=== PATIENT | female | born 1935 | race Two or more races ===

== ENCOUNTER 2017-04-11 03:07 | Inpatient (IN) | payer MEDICARE, BC ==
[~2017-04-11] VITALS: Ht 170.2 cm; Wt 90.7 kg
--- NOTE | 2017-04-11 03:10 | NUR ---
TO BED 7 AN 82 YO FEMALE BBRA FROM SNF FOR "SOB GETTING WORSE"; ON BREATHING [place] ADVERTISING CLERK. UPON ARRIVAL, PATIENT IS ON NONREBREATHER, 15LPM, SATTING AT 99% AT THIS TIME. PATIENT IS AWAKE, RESPONSIVE. PLACED ON CARDIAC AND VS MONITORING. KEPT HOB ELEVATED. MAINTAINED PATENT AIRWAY. COMFORT MEASURES RENDERED.
[2017-04-11 03:49] LABS: BASOPHILS # (AUTO) 0.1 /CMM (0.0-0.2); BASOPHILS % (AUTO) 0.8 % (0.0-2.0); EOSINOPHILS # (AUTO) 0.1 /CMM (0.0-0.7); EOSINOPHILS % (AUTO) 1.9 % (0.0-6.0); HEMATOCRIT 36 % (33-45); HEMOGLOBIN 11.7 g/dL (11.5-14.8); LYMPHOCYTES # (AUTO) 1.3 /CMM (0.8-4.8); LYMPHOCYTES % (AUTO) 18.4 % (20.0-44.0); MEAN CORPUSCULAR HEMOGLOBIN 28 PG (26.0-33.0); MEAN CORPUSCULAR HGB CONC 33 g/dl (31.0-36.0); MEAN CORPUSCULAR VOLUME 87 fL (82-100); MONOCYTES # (AUTO) 0.7 /CMM (0.1-1.30); MONOCYTES % (AUTO) 10.1 % (2.0-12.0); NEUTROPHILS # (AUTO) 4.9 /CMM (1.8-8.9); NEUTROPHILS % (AUTO) 68.8 % (43.0-81.0); PLATELET COUNT (AUTO) 196 /CMM (150-450); RDW COEFFICIENT OF VARIATION 16.8 (11.5-15.0); RED BLOOD CELL COUNT(AUTO) 4.14 MIL/uL (4.0-5.2); WHITE BLOOD COUNT (AUTO) 7.2 K/uL (4.3-11.0)
[2017-04-11] MEDS ORDERED: BISA10SU61 RC (03:52)
[2017-04-11] MEDS ORDERED: CRAN425C5 PO (03:52)
[2017-04-11] MEDS ORDERED: DOCU-141 PO (03:52)
[2017-04-11] MEDS ORDERED: BENA20TA2 PO (03:52)
[2017-04-11] MEDS ORDERED: BUSP10TA3 PO (03:52)
[2017-04-11 04:01] LABS: CALCIUM, SERUM 9.6 mg/dL (8.5-10.1); CARBON DIOXIDE 27 mmol/L (21-32); CHLORIDE 106 mmol/L (98-107); CREATININE 1.3 mg/dL (0.6-1.3); GLUCOSE 96 mg/dL (74-106); POTASSIUM 3.9 mmol/L (3.5-5.1); SODIUM SERUM 140 mmol/L (136-145); UREA NITROGEN, BLOOD 36 mg/dL (7-18)
[2017-04-11] MEDS ORDERED: PRED5TAB48 PO (04:06)
[2017-04-11] MEDS ORDERED: LIDO30AD10 TP (04:06)
[2017-04-11] MEDS ORDERED: FURO40TA5 PO (04:06)
[2017-04-11] MEDS ORDERED: CRAN3875 PO (04:06)
[2017-04-11] MEDS ORDERED: MAGN400O6 PO (04:06)
[2017-04-11] MEDS ORDERED: MENT10LO8 MM (04:06)
[2017-04-11] MEDS ORDERED: OXYC5CAP18 PO (04:06)
[2017-04-11] MEDS ORDERED: LOPE2CAP PO (04:06)
[2017-04-11] MEDS ORDERED: CYCL5TAB PO (04:06)
[2017-04-11] MEDS ORDERED: HYDR-552 PO (04:06)
[2017-04-11] MEDS ORDERED: IPRA3AMP IH (04:06)
[2017-04-11] MEDS ORDERED: HYDR-3974 PO (04:06)
[2017-04-11] MEDS ORDERED: POTA20TA10 PO (04:06)
[2017-04-11] MEDS ORDERED: ACET-868 PO (04:06)
[2017-04-11] MEDS ORDERED: PREG75CA PO (04:06)
[2017-04-11] MEDS ORDERED: PERP1TAB5 PO (04:06)
[2017-04-11] MEDS ORDERED: NA P133E RC (04:06)
[2017-04-11] MEDS ORDERED: AMIN30LI2 PO (04:06)
[2017-04-11 04:07] LABS: ABG BASE EXCESS 0.4 mmol/L; ABG OXYGEN SATURATION 94.7 % (92.0-98.5); ABG PCO2 43.7 mmHg (35.0-45.0); ABG PH 7.386 (7.350-7.450); ABG PO2 81.1 mmHg (75.0-100.0); AaDO2 588.2 mmHg; COHb 0.7 % (0.5-1.5); MetHb 0.5 % (0.0-1.5); O2Hb 93.6 % (94.0-97.0); SITE, ABG Right Radial; VENT MODE, BG NRB MASK
[2017-04-11 04:08] LABS: TROPONIN I < 0.017 ng/mL (0.00-0.056)
[2017-04-11 04:14] LABS: ALKALINE PHOSPHATASE 154 U/L (46-116); BILIRUBIN,DIRECT 0.1 mg/dL (0.0-0.2); BILIRUBIN,TOTAL 0.3 mg/dL (0.2-1.0)
[2017-04-11 04:15] LABS: ALANINE AMINOTRANSFERASE 26 U/L (12-78); ALBUMIN 2.4 g/dL (3.4-5.0); ASPARTATE AMINOTRANSFERASE 13 U/L (15-37); B-TYPE NATRIURETIC PEPTIDE 89 PG/ML (0-125); TOTAL PROTEIN, SERUM 6.6 g/dL (6.4-8.2)
[2017-04-11] MEDS ORDERED: PIPERACILLIN /TAZOBACTAM 3.375 G VIAL IV ONE (04:15)
[2017-04-11] MEDS ORDERED: LEVOFLOXACIN 750 MG /D5W 150ML 150 ML IV ONE ×2 (04:15→04:30)
[2017-04-11] MEDS ORDERED: methylPREDNISolone SOD SUCC 125 MG/2ML VIAL ONE (04:17)
[2017-04-11] MEDS ORDERED: ALBUTEROL FS 2.5 MG/3 ML VIAL.NEB CONTNEB ONE (04:30)
[2017-04-11] MEDS ORDERED: methylPREDNISolone SOD SUCC 125 MG/2ML VIAL IV ONE (04:30)
[2017-04-11] MEDS ORDERED: PIPERACILLIN /TAZOBACTAM 3.375 G in IV D5W 50 ML IV ONE (04:30)
[2017-04-11] MEDS ORDERED: IPRATROPIUM NEB FS 0.5 MG/2.5 ML AMPUL.NEB NEB ONE (04:30)
[2017-04-11] MEDS ORDERED: IV NS 0.9% 1,000 ML BAG IV ONE (04:30)
--- NOTE | 2017-04-11 04:50 | NUR ---
ONGOING BREATHING TREATMENT.
[2017-04-11] MEDS ORDERED: ALBUTEROL FS 2.5 MG/3 ML VIAL.NEB ONE (04:52)
[2017-04-11] MEDS ORDERED: IPRATROPIUM NEB FS 0.5 MG/2.5 ML AMPUL.NEB ONE (04:52)
[2017-04-11 06:10] VITALS: BP 105/54
--- NOTE | 2017-04-11 06:10 | NUR ---
ms/rn notes received patient in bed, hob elevate, for sob/hypoxia requiring 6l oxygen on deep breathing mask, patient able to awaken but weak, , hx of depression, spinallstenosis, met encephalopathy, uti, dysphagia, difficult ambulating, , full code but no intubation with hospitalization, came from [facility]. , right hand on gauge 20, , able to awaken, skin warm to touch, incontinent.
--- NOTE | 2017-04-11 06:17 | NUR ---
TRANSFERRED PATIENT TO TELE BED 326-1 VIA ALS PROTOCOL, NO INCIDENT NOTED. ENDORSED TO BHAVANI BENOIT AT BEDSIDE.
[2017-04-11] MEDS ORDERED: ACETAMINOPHEN 325 MG TABLET PO PRN (07:30)
[2017-04-11] MEDS ORDERED: ONDANSETRON HCL/PF 4 MG/2 ML VIAL IVP PRN (07:30)
[2017-04-11 08:00] VITALS: BP 103/55
--- NOTE | 2017-04-11 08:07 | NUR ---
TERRITORY SALES PROFESSIONAL RAPID RESPONSE NOTE RECEIVED REPORT FROM NUCLEAR WEAPONS MECHANICAL SPECIALIST NURSE, UPON NURSING ASSESSMENT PATIENT WAS UNRESPONSIVE. VITAL SIGNS SIGNS TAKEN DURING RAPID RESPONSE, BP:99/49 t:98.0 O2 SATURATION:100% ON 5L/MIN OF OXYGEN VIA NASAL CANNULA. PATIENT WAS VERY LETHARGIC AND NOT RESPONDING TO STIMULI. MD NOTIFIED ABOUT PATIENT'S CONDITION, GLUCOSE CHECKED-154. ORDERS RECEIVED BY MD FOR 1GRAM MAGNESIUM NOTED AND CARRIED OUT. STAT ABG ORDERED, RESULTS CAME BACK WNL WITH HYPOXIA NOTED. RAPID RESPONSE WAS RESOLVED. PATIENT IS ALERT AND ORIENTED X2. STABLE AT THIS TIME. ABLE TO FOLLOW COMMANDS AND TALKING BACK TO NURSES.
[2017-04-11] MEDS ORDERED: Magnesium 1GM/D5W 100ML PREMIX PIGGYBACK IV ONE (08:30)
[2017-04-11 08:38] LABS: ABG OXYGEN SATURATION 85.9 % (92.0-98.5); ABG PH 7.372 (7.350-7.450); ABG PO2 54.7 mmHg (75.0-100.0); AaDO2 120.8 mmHg; COHb 0.1 % (0.5-1.5); MetHb 0.4 % (0.0-1.5); O2Hb 85.5 % (94.0-97.0); SITE, ABG Right Radial; VENT MODE, BG Nasal Cannula
[2017-04-11] MEDS: IPRATROPIUM NEB FS 0.5 MG/2.5 ML AMPUL.NEB NEB PRN (08:46)
[2017-04-11] MEDS: ALBUTEROL FS 2.5 MG/0.5 ML VIAL.NEB NEB PRN (08:46)
[2017-04-11] MEDS ORDERED: Medication Not On Formulary EA (Cran/Vitc/Mannose/Inulin/Brom (Uti-Stat Liquid) 3,875 MG PO SCH (09:00)
[2017-04-11] MEDS: BENAZEPRIL HCL 10 MG TABLET PO SCH (09:00)
[2017-04-11] MEDS ORDERED: busPIRone HCL 10 MG TABLET PO SCH (09:00)
--- NOTE | 2017-04-11 09:00 | NUR ---
RN NOTE MAGNESIUM 1 GRAM STARTED AT THIS TIME. WILL CONTINUE TO MONITOR
[2017-04-11] MEDS: PREGABALIN 25 MG CAPSULE PO SCH ×3 (09:21→17:36)
[2017-04-11] MEDS: IV NS 0.9% 1,000 ML IV PRN (09:21)
[2017-04-11] MEDS: CYCLOBENZAPRINE 10 MG TABLET PO SCH ×3 (09:22→17:36)
[2017-04-11] MEDS: DOCUSATE SODIUM 100 MG CAPSULE PO SCH ×2 (09:22→17:36)
[2017-04-11] MEDS: POTASSIUM CHLORIDE 20 MEQ TAB.PRT.SR PO SCH (09:22)
[2017-04-11] MEDS: FUROSEMIDE 40 MG TABLET PO SCH (09:23)
[2017-04-11] MEDS: PROSOURCE / PROSTAT (PYXIS) 30 ML UDC PO SCH (09:27)
[2017-04-11] MEDS ORDERED: AMITRIPTYLINE HCL 50 MG TABLET PO SCH (11:00)
[2017-04-11] MEDS: PERPHENAZINE 2 MG TABLET PO SCH (11:00)
[2017-04-11] MEDS ORDERED: methylPREDNISolone SOD SUCC 125 MG/2ML VIAL IV SCH (13:00)
[2017-04-11 14:16] VITALS: BP 99/49
[2017-04-11 16:00] VITALS: BP 126/54
--- NOTE | 2017-04-11 16:30 | NUR ---
RN NOTE PER MD TO DO BLADDER SCAN ON PATIENT. BLADDER SCAN SHOWED >530 ML OF URINE RETAINED. ORDER FROM MD TO INSERT NULL, COLLECT URINE FOR UA AND URINE CULTURE. NULL CATHETER INSERTED, PATIENT TOLERATED WELL. URINE SAMPLE COLLECTED AND SENT TO LAB. WILL CONTINUE TO MONITOR THROUGHOUT SHIFT
[2017-04-11] MEDS: busPIRone 5 MG TABLET PO SCH (17:36)
[2017-04-11] MEDS ORDERED: FEE PK DOSING 1 MIN EA MC ONE (18:31)
--- NOTE | 2017-04-11 18:36 | NUR ---
DOUGHNUT FRYER CLOSING NOTE PATIENT IS ALERT AND ORIENTED x2. NO PAIN AT THIS TIME. NO SOB OR DISTRESS NOTED. CALL LIGHT WITHIN REACH AT ALL TIMES. SAFETY MEASURES IMPLEMENTED. ALL DUE MEDICATIONS GIVEN ORDERED. ALL NURSING CARE NEEDS ATTENDED TO NEEDED. IV INTACT AND PATENT NO REDNESS OR SWELLING NOTED, IV FLUIDS RUNNING AT THIS TIME TOLERATING WELL. NULL CATHETER IN PLACE. ON 5L/MIN OF OXYGEN VIA NASAL CANNULA WITH HUMIDIFIER. WILL ENDORSE TO MOISTURE METER OPERATOR NURSE FOR KEO
[2017-04-11] MEDS: ENOXAPARIN SODIUM 40 MG/0.4 ML DISP.SYRIN SQ SCH (18:54)
--- NOTE | 2017-04-11 19:45 | NUR ---
PRESS CLEANER OPENING NOTES RECEIVED PT LAYING IN BED WITH HOB ELEVATED. A/O X1, RESPIRATIONS ARE EVEN AND UNLABORED, NOT IN ANY ACUTE DISTRESS NOTED. NO C/O SOB, CHEST PAIN, N/V AT THIS TIME. DENIES ANY PAIN. IV TO RIGHT HAND INTACT, NO INFILTRATION NOTED. SAFETY MEASURES IN PLACE. BED IS IN ITS LOCKED AND LOW POSITION. WILL CONTINUE TO MONITOR THROUGHOUT SHIFT.
[2017-04-11 20:37] VITALS: BP 118/63
--- NOTE | 2017-04-11 20:45 | NUR ---
LINK TRAINER MAINTENANCE MAN NOTES PT WAS ASSIGNED TO ANOTHER RN. GAVE REPORT TO KAYCEE STARR FOR CONTINUITY OF CARE.
[2017-04-11] MEDS: VANCOMYCIN 1 GM in IV NS 0.9% 250 ML IV SCH (21:00)
[2017-04-11] MEDS: methylPREDNISolone SOD SUCC 125 MG/2ML VIAL IV SCH (21:00)
[2017-04-11 21:09] LABS: APPEARANCE,URINE SL CLOUDY (CLEAR); BILIRUBIN,URINE NEGATIVE (NEGATIVE); BLOOD, URINE NEGATIVE Ery/uL (NEGATIVE); COLOR,URINE YELLOW (YELLOW); KETONES,URINE NEGATIVE (NEGATIVE); LEUKOCYTE ESTERASE ,URINE 2+ (NEGATIVE); NITRITE, URINE POSITIVE (NEGATIVE); PROTEIN,URINE TRACE mg/dl (NEGATIVE); UGLUCOSE NEGATIVE (NEGATIVE); UROBILINOGEN,URINE 0.2 EU/dL (0.2)
[2017-04-11 21:10] LABS: PH,URINE >8.5 (5.0-8.0)
[2017-04-11 21:22] LABS: RBC,URINE 0-2 /HPF (0-2)
[2017-04-11 21:23] LABS: BACTERIA,URINE Few /HPF (None Seen); SQUAMOUS EPITHELIAL CELL,UR Few /HPF (None Seen); URINE AMORPHOUS PHOSPHATES Moderate /HPF (None Seen)
--- NOTE | 2017-04-11 23:10 | NUR ---
Patient resides at [facility] [phone] .She requires assistance with adl's and chair bound. Family are involved and supportive with plan of care. Current plan is to dc back to SNF Addendum: 04/11/17 at 2311 by ROSALINA CAMARENA RN Amended: Links added.
[2017-04-12] MEDS: IV NS 0.9% 1,000 ML IV PRN (04:42)
[2017-04-12] MEDS: methylPREDNISolone SOD SUCC 125 MG/2ML VIAL IV SCH ×3 (05:16→18:05)
[2017-04-12] MEDS: IPRATROPIUM NEB FS 0.5 MG/2.5 ML AMPUL.NEB NEB PRN (06:06)
[2017-04-12] MEDS: ALBUTEROL FS 2.5 MG/0.5 ML VIAL.NEB NEB PRN (06:06)
--- NOTE | 2017-04-12 07:24 | NUR ---
ms/rn notes Patient alert et orientedx 2-3 , No significant changes the entire shift. Vital signs, afebrile, Denies pain at present. Administered all meds as ordered. Sinus Rhythm on technical documentation specialist, hr-70. No acute distress noted. All meeds attended. will endorse accordingly.
--- NOTE | 2017-04-12 07:30 | NUR ---
ROLLER REPAIRER OPENING NOTE PATIENT IS ALERT AND ORIENTED x2. NO PAIN AT THIS TIME. NO SOB OR DISTRESS NOTED. CALL LIGHT WITHIN REACH. SAFETY MEASURES IMPLEMENTED. ABLE TO COMMUNICATE NEEDS. IV INTACT AND PATENT NO REDNESS OR SWELLING NOTED, IV FLUIDS RUNNING AT THIS TIME TOLERATING WELL AT 75 ML/HR. ON 5L/MIN OF OXYGEN VIA NASAL CANNULA WITH HUMIDIFIER. NULL CATHETER IN PLACE. WILL CONTINUE TO MONITOR THROUGHOUT SHIFT
[2017-04-12 08:00] VITALS: BP 142/72
[2017-04-12 08:14] LABS: HEMATOCRIT 32 % (33-45); HEMOGLOBIN 10.7 g/dL (11.5-14.8); LYMPHOCYTES # (AUTO) 0.3 /CMM (0.8-4.8); LYMPHOCYTES % (AUTO) 3.5 % (20.0-44.0); MEAN CORPUSCULAR HEMOGLOBIN 29 PG (26.0-33.0); MEAN CORPUSCULAR HGB CONC 34 g/dl (31.0-36.0); MEAN CORPUSCULAR VOLUME 86 fL (82-100); MONOCYTES # (AUTO) 0.2 /CMM (0.1-1.30); MONOCYTES % (AUTO) 2.7 % (2.0-12.0); NEUTROPHILS # (AUTO) 8.5 /CMM (1.8-8.9); NEUTROPHILS % (AUTO) 93.8 % (43.0-81.0); PLATELET COUNT (AUTO) 172 /CMM (150-450); RDW COEFFICIENT OF VARIATION 16.2 (11.5-15.0); RED BLOOD CELL COUNT(AUTO) 3.68 MIL/uL (4.0-5.2)
[2017-04-12 08:26] LABS: CALCIUM, SERUM 8.5 mg/dL (8.5-10.1); CARBON DIOXIDE 26 mmol/L (21-32); CHLORIDE 108 mmol/L (98-107); CREATININE 0.9 mg/dL (0.6-1.3); GLUCOSE 125 mg/dL (74-106); PHOSPHORUS 2.4 mg/dL (2.5-4.9); POTASSIUM 4.3 mmol/L (3.5-5.1); SODIUM SERUM 142 mmol/L (136-145); UREA NITROGEN, BLOOD 25 mg/dL (7-18)
[2017-04-12 08:32] LABS: CHOLESTEROL 146 mg/dL (<200); HDL CHOLESTEROL 55 mg/dL (40-60); LDL 82 mg/dL (0-99); TRIGLYCERIDES 75 mg/dL (30-150)
[2017-04-12] MEDS: FUROSEMIDE 40 MG TABLET PO SCH (08:35)
[2017-04-12] MEDS: DOCUSATE SODIUM 100 MG CAPSULE PO SCH ×2 (08:35→16:35)
[2017-04-12] MEDS: POTASSIUM CHLORIDE 20 MEQ TAB.PRT.SR PO SCH (08:35)
[2017-04-12] MEDS: busPIRone 5 MG TABLET PO SCH ×2 (08:35→16:35)
[2017-04-12] MEDS: CYCLOBENZAPRINE 10 MG TABLET PO SCH ×3 (08:36→16:35)
[2017-04-12] MEDS: PREGABALIN 25 MG CAPSULE PO SCH ×3 (08:36→16:35)
[2017-04-12] MEDS: BENAZEPRIL HCL 10 MG TABLET PO SCH (08:37)
[2017-04-12] MEDS: PROSOURCE / PROSTAT (PYXIS) 30 ML UDC PO SCH (08:42)
[2017-04-12] MEDS: PERPHENAZINE 2 MG TABLET PO SCH (09:00)
--- NOTE | 2017-04-12 10:30 | NUR ---
MS RN NOTE PATIENT'S IV INFILTRATED ON RIGHT WRIST. REMOVED, SKIN INTACT, SWELLING DOWN. NEW IV STARTED ON RIGHT FOREARM 22G.
[2017-04-12] MEDS: AMITRIPTYLINE HCL 25 MG TABLET PO SCH (11:48)
[2017-04-12] MEDS: VANCOMYCIN 1 GM in IV NS 0.9% 250 ML IV SCH (13:44)
[2017-04-12 16:00] VITALS: BP 129/72
[2017-04-12] MEDS ORDERED: K PHOS NEUTRAL 250 MG TABLET PO ONE (18:30)
--- NOTE | 2017-04-12 18:44 | NUR ---
MS RN CLOSING NOTE PATIENT RESTING COMFORTABLY AT THIS TIME IN BED. NO PAIN AT THIS TIME. NO SOB OR DISTRESS NOTED. CALL LIGHT WITHIN REACH AT ALL TIMES. SAFETY MEASURES IMPLEMENTED. ABLE TO COMMUNICATE NEEDS. ALL DUE MEDICATIONS GIVEN ORDERED. ALL NURSING CARE NEEDS ATTENDED TO. IV INTACT AND PATENT NO REDNESS OR SWELLING NOTED, IV FLUIDS RUNNING AT THIS TIME TOLERATING WELL AT 75 ML/HR. NULL CATHETER IN PLACE-2500 OUTPUT. ON 5L/MIN OF OXYGEN VIA NASAL CANNULA TOLERATING WELL. WILL ENDORSE TO PROCESS ASSISTANT NURSE FOR KEO
--- NOTE | 2017-04-12 19:29 | NUR ---
MS RN OPENING NOTES RECEIVED PT SITTING UPRIGHT IN BED. AWAKE AND RESPONSIVE. RESPIRATIONS ARE EVEN AND UNLABORED, NOT IN ANY ACUTE DISTRESS NOTED. DENIES ANY CHEST PAIN, SOB, N/V. IV SITE INTACT, NO INFILTRATION NOTED. DRESSING KEPT CLEAN AND DRY. SAFETY MEASURES IN PLACE. BED IS IN ITS LOW AND LOCKED POSITION. INSTRUCTED PT TO USE CALL LIGHT WHEN ASSISTANCE IS NEEDED, CALL LIGHT IS LEFT WITHIN REACH. WILL CONTINUE TO MONITOR THROUGHOUT SHIFT.
[2017-04-12 20:00] VITALS: BP 122/70
[2017-04-12] MEDS: ENOXAPARIN SODIUM 40 MG/0.4 ML DISP.SYRIN SQ SCH (20:33)
[2017-04-13] MEDS: IV NS 0.9% 1,000 ML IV PRN ×2 (00:19→19:48)
--- NOTE | 2017-04-13 01:10 | NUR ---
MS RN NOTES PT HAD AN EPISODE OF TRYING TO GET OUT OF BED. STATED SHE "MADE ANTHONY." CHECKED PT AND IS COMPLETELY DRY, CURRENTLY HAS A NULL CATH, FREE OF KINKS AND IS DRAINING WELL. NOTED WITH CLEAR YELLOW URINE. EDUCATED PT RE: SAFETY MEASURES TO NOT GET OUT OF BED AND TO USE CALL LIGHT WHEN ASSISTANCE IS NEEDED. PT APPEARS TO BE CONFUSED AND NEEDS REINFORCEMENT NEEDED. BED IS IN ITS LOW AND LOCKED POSITION. CALL LIGHT IS LEFT WITHIN REACH.
[2017-04-13] MEDS: LEVOFLOXACIN 750 MG /D5W 150ML 750 MG in PREMIX 1 EA IV SCH (04:15)
--- NOTE | 2017-04-13 06:21 | NUR ---
MS RN CLOSING NOTES ALL DUE MEDS GIVEN, NEEDS MET AND RENDERED. AWAKE AND RESPONSIVE. RESPIRATIONS ARE EVEN AND UNLABORED, NOT IN ANY ACUTE DISTRESS NOTED. DENIES ANY PAIN, SOB, CHEST PAIN, N/V. IV TO RAC INTACT, NO INFILTRATION NOTED. DRESSING KEPT CLEAN AND DRY. BED IS IN ITS LOW AND LOCKED POSITION. REMINDED PT TO USE CALL LIGHT WHEN ASSISTANCE IS NEEDED, CALL LIGHT IS LEFT WITHIN REACH. WILL ENDORSE TO NEXT SHIFT CONTINUITY OF CARE.
[2017-04-13 08:00] VITALS: BP 142/76
[2017-04-13 08:09] LABS: BASOPHILS % (AUTO) 0.2 % (0.0-2.0); HEMATOCRIT 33 % (33-45); HEMOGLOBIN 11.2 g/dL (11.5-14.8); LYMPHOCYTES # (AUTO) 0.8 /CMM (0.8-4.8); LYMPHOCYTES % (AUTO) 7.5 % (20.0-44.0); MEAN CORPUSCULAR HEMOGLOBIN 29 PG (26.0-33.0); MEAN CORPUSCULAR HGB CONC 34 g/dl (31.0-36.0); MEAN CORPUSCULAR VOLUME 87 fL (82-100); MONOCYTES # (AUTO) 0.7 /CMM (0.1-1.30); MONOCYTES % (AUTO) 6.4 % (2.0-12.0); NEUTROPHILS # (AUTO) 9.1 /CMM (1.8-8.9); NEUTROPHILS % (AUTO) 85.9 % (43.0-81.0); PLATELET COUNT (AUTO) 181 /CMM (150-450); RDW COEFFICIENT OF VARIATION 16.5 (11.5-15.0); RED BLOOD CELL COUNT(AUTO) 3.85 MIL/uL (4.0-5.2); WHITE BLOOD COUNT (AUTO) 10.6 K/uL (4.3-11.0)
[2017-04-13 08:32] LABS: CALCIUM, SERUM 8.5 mg/dL (8.5-10.1); CARBON DIOXIDE 26 mmol/L (21-32); CHLORIDE 108 mmol/L (98-107); CREATININE 0.8 mg/dL (0.6-1.3); GLUCOSE 81 mg/dL (74-106); POTASSIUM 4.4 mmol/L (3.5-5.1); SODIUM SERUM 141 mmol/L (136-145); UREA NITROGEN, BLOOD 22 mg/dL (7-18)
[2017-04-13] MEDS: PROSOURCE / PROSTAT (PYXIS) 30 ML UDC PO SCH ×2 (09:00→09:26)
[2017-04-13] MEDS: VANCOMYCIN 1 GM in IV NS 0.9% 250 ML IV SCH (09:16)
[2017-04-13] MEDS: PREGABALIN 25 MG CAPSULE PO SCH ×3 (09:27→18:32)
[2017-04-13] MEDS: FUROSEMIDE 40 MG TABLET PO SCH (09:27)
[2017-04-13] MEDS: methylPREDNISolone SOD SUCC 125 MG/2ML VIAL IV SCH (09:27)
[2017-04-13] MEDS: CYCLOBENZAPRINE 10 MG TABLET PO SCH ×3 (09:27→18:31)
[2017-04-13] MEDS: busPIRone 5 MG TABLET PO SCH ×2 (09:28→18:31)
[2017-04-13] MEDS: POTASSIUM CHLORIDE 20 MEQ TAB.PRT.SR PO SCH (09:28)
[2017-04-13] MEDS: BENAZEPRIL HCL 10 MG TABLET PO SCH (09:28)
[2017-04-13] MEDS: AMITRIPTYLINE HCL 25 MG TABLET PO SCH (09:29)
[2017-04-13] MEDS: DOCUSATE SODIUM 100 MG CAPSULE PO SCH ×2 (09:29→18:32)
[2017-04-13] MEDS: PERPHENAZINE 2 MG TABLET PO SCH (09:41)
--- NOTE | 2017-04-13 12:10 | NUR ---
RECEIVED POSITIVE BLOOD CULTURE FROM SASKIA JACKSON RN INFORMED AND NEVILLE TEXTED WITH INFO-REPORTS IN COMPUTER. CONFIRMATION FROM NEVILLE THAT HE IS AWARE OF REPORTS.
[2017-04-13 16:00] VITALS: BP 124/72
--- NOTE | 2017-04-13 18:00 | NUR ---
NO CHANGE IN STATUS.
--- NOTE | 2017-04-13 19:15 | NUR ---
MS RN OPENING NOTES: RECEIVED PT IN BED AND IS FINISHING UP HER DINNER. PT A/OX2. PT ON 5LPM VIA NC AND IS TOLERATING WELL. NO S/S OF DISTRESS NOTED AT THIS TIME. PT HAS NULL CATH AND IS ATTACHED TO DRAINAGE BAG WITH YELLOW URINE DRAINING. BED ALARM ACTIVATED. CALL LIGHT WITHIN PT'S REACH. PT HAS IV ON R FOREARM #22G AND IS BEING INFUSED WITH IV NS AT 75ML/HR. BED KEPT IN LOW, LOCKED POSITION, AND SIDE RAILS X 2UP. WILL CONTINUE TO MONITOR PT.
[2017-04-13 20:00] VITALS: BP 136/71
[2017-04-13] MEDS: ENOXAPARIN SODIUM 40 MG/0.4 ML DISP.SYRIN SQ SCH (20:39)
[2017-04-14] MEDS: VANCOMYCIN 1 GM in IV NS 0.9% 250 ML IV SCH ×2 (01:15→21:39)
--- NOTE | 2017-04-14 07:44 | NUR ---
MS RN CLOSING NOTES: ALL NEEDS WERE ATTENDED AND ANTICIPATED FOR. PT AWAKE AND IS RESTING IN BED COMFORTABLY. PT A/OX2. PT ON 5LPM VIA NC AND IS TOLERATING WELL. NO S/S OF DISTRESS NOTED AT THIS TIME. PT HAS NULL CATH AND IS ATTACHED TO DRAINAGE BAG WITH YELLOW URINE DRAINING. OUTPUT WAS 1100ML. BED ALARM ACTIVATED. CALL LIGHT WITHIN PT'S REACH. PT HAS IV ON R FOREARM #22G AND IS BEING INFUSED WITH IV NS AT 75ML/HR. BED KEPT IN LOW, LOCKED POSITION, AND SIDE RAILS X 2UP. ENDORSED TO AM NURSE FOR KEO.
[2017-04-14 07:59] LABS: BASOPHILS % (AUTO) 0.1 % (0.0-2.0); EOSINOPHILS % (AUTO) 0.2 % (0.0-6.0); HEMATOCRIT 34 % (33-45); HEMOGLOBIN 11.3 g/dL (11.5-14.8); LYMPHOCYTES % (AUTO) 15.8 % (20.0-44.0); MEAN CORPUSCULAR HEMOGLOBIN 29 PG (26.0-33.0); MEAN CORPUSCULAR HGB CONC 33 g/dl (31.0-36.0); MEAN CORPUSCULAR VOLUME 88 fL (82-100); MONOCYTES # (AUTO) 0.5 /CMM (0.1-1.30); NEUTROPHILS # (AUTO) 4.6 /CMM (1.8-8.9); NEUTROPHILS % (AUTO) 74.9 % (43.0-81.0); PLATELET COUNT (AUTO) 156 /CMM (150-450); RDW COEFFICIENT OF VARIATION 16.3 (11.5-15.0); RED BLOOD CELL COUNT(AUTO) 3.89 MIL/uL (4.0-5.2); WHITE BLOOD COUNT (AUTO) 6.1 K/uL (4.3-11.0)
[2017-04-14 08:00] VITALS: BP 126/71
--- NOTE | 2017-04-14 08:00 | NUR ---
RN NOTES RECEIVED PATIENT IN THE BED A/O X3, CONGESTED CHEST, COUGHING, ON O2 -2L NC, PATIENT HAS NO C/O PAIN AT THIS TIME, ENCOURAGED TO EXPRESS FEELINGS AND CONCERNS. V/S TAKEN STABLE. SCHEDULED MEDICATION ADMINISTERED, NO ACUTE RESPIRATORY DISTRESS, INFUSING NS AT 75 ML/HR INTACT. ASSIST PATIENT TURN AND REPOSTION Q 2 HR, NEEDS ATTENDED AND ANTICIPATED F/C DRAIN LIGHT YELLOW OUTPUT, CALL LIGHT WITHIN TO REACH, CONTINUED MONITORING.
[2017-04-14 08:13] LABS: CALCIUM, SERUM 8.9 mg/dL (8.5-10.1); CARBON DIOXIDE 29 mmol/L (21-32); CHLORIDE 114 mmol/L (98-107); CREATININE 0.8 mg/dL (0.6-1.3); GLUCOSE 68 mg/dL (74-106); POTASSIUM 4.4 mmol/L (3.5-5.1); SODIUM SERUM 148 mmol/L (136-145); UREA NITROGEN, BLOOD 21 mg/dL (7-18)
[2017-04-14] MEDS: PREGABALIN 25 MG CAPSULE PO SCH ×3 (09:30→18:03)
[2017-04-14] MEDS: POTASSIUM CHLORIDE 20 MEQ TAB.PRT.SR PO SCH (09:30)
[2017-04-14] MEDS: FUROSEMIDE 40 MG TABLET PO SCH (09:30)
[2017-04-14] MEDS: CYCLOBENZAPRINE 10 MG TABLET PO SCH ×3 (09:30→18:03)
[2017-04-14] MEDS: DOCUSATE SODIUM 100 MG CAPSULE PO SCH ×2 (09:30→18:03)
[2017-04-14] MEDS: predniSONE 20 MG TABLET PO SCH (09:31)
[2017-04-14] MEDS: busPIRone 5 MG TABLET PO SCH ×2 (09:31→18:03)
[2017-04-14] MEDS: AMITRIPTYLINE HCL 25 MG TABLET PO SCH (09:32)
[2017-04-14] MEDS: BENAZEPRIL HCL 10 MG TABLET PO SCH (09:32)
[2017-04-14] MEDS: PROSOURCE / PROSTAT (PYXIS) 30 ML UDC PO SCH (09:32)
[2017-04-14] MEDS: PERPHENAZINE 2 MG TABLET PO SCH (09:38)
[2017-04-14] MEDS: HYDROCODONE/APAP 5/325MG 1 EACH TABLET PO PRN ×2 (14:38→21:44)
--- NOTE | 2017-04-14 14:38 | NUR ---
RN NOTES ADMINISTERED NARCO 5/325 MG/PO PRN FOR GENERALIZED PAIN 09/20, PER PATIENT REQUEST, V/S TAKEN BP-113/69, P-111, CALL LIGHT WITHIN TO REACH, CONTINUED MONITORING.
[2017-04-14] MEDS: IV NS 0.9% 1,000 ML IV PRN (15:17)
[2017-04-14 16:00] VITALS: BP 101/62
--- NOTE | 2017-04-14 18:41 | NUR ---
RN NOTES PATIENT IN THE BED ON O2-2L, A/O X3, NO ACUTE RESPIRATORY DISTRESS, SCHEDULED MEDICATION ADMINISTERED, V/S STABLE, PATIENT REFUSED PAIN AT THIS TIME. ASSIST TURN AND REPOSTION Q 2 HR, CALL LIGHT WITHIN TO REACH. CONTINUED MONITORING. ENDORSED ONCOMING NURSE FOR KEO.
[2017-04-14 20:00] VITALS: BP 113/60
--- NOTE | 2017-04-14 20:00 | NUR ---
MS RN OPENING NOTES: RECEIVED PATIENT IN BED, AWAKE, NO COMPLAINS OF PAIN OR DISCOMFORT THIS TIME OF ASSESSMENT. PATIENT IS WITH O2 INHALATION AT 2LP VIA NASAL CANNULA, WITH IVF ON LEFT WRIST G#22 NS AT 75ML/HR, NO SIGNS OF PHLEBITIS OR REDNESS ON SITE, NO PAIN. NULL CATH IN PLACE DRAINING CLEAR YELLOW URINE. PATIENT KEPT WARM AND DRY. WILL CONTINUE TO MONITOR PATIENT.
[2017-04-14] MEDS: ENOXAPARIN SODIUM 40 MG/0.4 ML DISP.SYRIN SQ SCH (21:42)
[2017-04-15] MEDS: LEVOFLOXACIN 750 MG /D5W 150ML 750 MG in PREMIX 1 EA IV SCH (04:14)
[2017-04-15] MEDS: IV NS 0.9% 1,000 ML IV PRN (04:18)
--- NOTE | 2017-04-15 06:56 | NUR ---
MS RN CLOSING NOTES: PATIENT IN BED, ASLEEP, NO COMPLAINS OF PAIN OR DISCOMFORT THIS TIME OF ASSESSMENT. IVF OF NS @75ML/HR, ON LEFT AC ON GOING G#22, GOOD RETURN FLOW NOTED. NULL CATH IN PLACE, DRAINING YELLOW CLEAR URINE. NOT IN RESPIRATORY DISTRESS NOTED THIS TIME. WILL ENDORSE PATIENT TO DAY SHIFT NURSE.
[2017-04-15 08:00] VITALS: BP 143/73
[2017-04-15] MEDS: POTASSIUM CHLORIDE 20 MEQ TAB.PRT.SR PO SCH (08:24)
[2017-04-15] MEDS: DOCUSATE SODIUM 100 MG CAPSULE PO SCH ×2 (08:24→16:24)
[2017-04-15] MEDS: PREGABALIN 25 MG CAPSULE PO SCH ×3 (08:25→16:24)
[2017-04-15] MEDS: AMITRIPTYLINE HCL 25 MG TABLET PO SCH (08:25)
[2017-04-15] MEDS: CYCLOBENZAPRINE 10 MG TABLET PO SCH ×3 (08:25→16:24)
[2017-04-15] MEDS: FUROSEMIDE 40 MG TABLET PO SCH (08:25)
[2017-04-15] MEDS: predniSONE 20 MG TABLET PO SCH (08:25)
[2017-04-15] MEDS: BENAZEPRIL HCL 10 MG TABLET PO SCH (08:26)
[2017-04-15] MEDS: busPIRone 5 MG TABLET PO SCH ×2 (08:26→16:24)
[2017-04-15] MEDS: PERPHENAZINE 2 MG TABLET PO SCH (08:28)
[2017-04-15] MEDS: PROSOURCE / PROSTAT (PYXIS) 30 ML UDC PO SCH (08:28)
[2017-04-15 08:58] LABS: CALCIUM, SERUM 8.7 mg/dL (8.5-10.1); CARBON DIOXIDE 31 mmol/L (21-32); CHLORIDE 107 mmol/L (98-107); CREATININE 0.9 mg/dL (0.6-1.3); GLUCOSE 65 mg/dL (74-106); POTASSIUM 4.2 mmol/L (3.5-5.1); SODIUM SERUM 143 mmol/L (136-145); UREA NITROGEN, BLOOD 20 mg/dL (7-18)
[2017-04-15] MEDS: HYDROCODONE/APAP 5/325MG 1 EACH TABLET PO PRN ×2 (10:28→16:25)
--- NOTE | 2017-04-15 10:28 | NUR ---
RN NOTES ADMINISTERED NARCO 5/325 MG PO PRN FOR GENERALIZED PAIN 08/20 PER PATIENT REQUEST, V/S TAKEN BP-143/73, P-70, ENCOURAGED TO INCREASE FLUID INTAKE, CONTINUED MONITORING.
--- NOTE | 2017-04-15 11:30 | NUR ---
RN NOTES MEDICATION WERE ADMINISTERED FOR PAIN EFFECTIVE. CONTINUED MONITORING.
[2017-04-15] MEDS: VANCOMYCIN 1 GM in IV NS 0.9% 250 ML IV SCH (14:29)
[2017-04-15 16:00] VITALS: BP 134/70
--- NOTE | 2017-04-15 16:14 | NUR ---
RN NOTES PATIENT WILL D/C [facility].
--- NOTE | 2017-04-15 16:26 | NUR ---
RN NOTES ADMINISTERED NARCO 5/325 M,G PO PRN FOR BILATERAL KEES PAIN 5/10 PER PATIENT REQUEST, V/S TAKEN STABLE BP -134/76, P-70, CALL LIGHT WITHIN TO REACH CONTINUED MONITORING.
--- NOTE | 2017-04-15 18:20 | NUR ---
DISCHARGE NOTES PATIENT DISCHARGE AT THIS TIME GOING SNF. PATIENT A/O X2/3, ON O2 -2L, NO ACUTE DISTRESS, MEDICATION WERE ADMINISTERED FOR PAIN EFFECTIVE, PATIENT AVA, V/S STABLE. MED RECONCILIATION AND DISCHARGE ORDERS REVIEWED AND EXPLAINED TO. REPORT GIVEN SNF RN WILFREDO. RN VERBALIZED UNDERSTANDING, PATIENT REFUSED SIGH PAPERWORK, REFUSED PICTURE TO BE TAKEN. BELONGING RETURNED BACK TO THE PATIENT. PATIENT WILL FOLLOW FACILITY INDUSTRIAL ILLUMINATING ENGINEER. PATIENT FAMILY AWARE OF PATIENT DISCHARGE. PATIENT WIRE COATER BY AMBULANCE.
== END 2017-04-15 18:16 | DRG 193 ==
LOC: ER 03:10 → TELE 05:49 → MED 04-12 08:51
PROVIDERS: ADMIT Nurse Practitioner Acute Care; ATTEND Nurse Practitioner Acute Care
DX: J15.9 Unspecified bacterial pneumonia (principal); J96.21 Acute and chronic respiratory failure with hypoxia; N17.0 Acute kidney failure with tubular necrosis; G93.41 Metabolic encephalopathy; E44.0 Moderate protein-calorie malnutrition; J90 Pleural effusion, not elsewhere classified; E87.0 Hyperosmolality and hypernatremia; J44.0 Chronic obstructive pulmonary disease with (acute) lower respiratory infection; J98.11 Atelectasis; J44.1 Chronic obstructive pulmonary disease with (acute) exacerbation; N39.0 Urinary tract infection, site not specified; Z99.81 Dependence on supplemental oxygen; R13.10 Dysphagia, unspecified; D63.8 Anemia in other chronic diseases classified elsewhere; E86.0 Dehydration; Z90.710 Acquired absence of both cervix and uterus; Z87.891 Personal history of nicotine dependence; Z87.440 Personal history of urinary (tract) infections; Z86.711 Personal history of pulmonary embolism; Z82.5 Family history of asthma and other chronic lower respiratory diseases; Z80.0 Family history of malignant neoplasm of digestive organs; Z68.31 Body mass index [BMI] 31.0-31.9, adult; Y95 Nosocomial condition; M48.00 Spinal stenosis, site unspecified; F32.9 Major depressive disorder, single episode, unspecified; F41.9 Anxiety disorder, unspecified; G89.29 Other chronic pain; Z79.899 Other long term (current) drug therapy; R33.9 Retention of urine, unspecified; I10 Essential (primary) hypertension; M19.90 Unspecified osteoarthritis, unspecified site; Z87.311 Personal history of (healed) other pathological fracture; E66.9 Obesity, unspecified
CPT/HCPCS: 36415; 36600; 71045-TC; 80048-TC; 80061-TC; 80076-TC; 80202-TC; 81000-TC; 82803-TC; 82962-TC; 83605-TC; 83735-TC; 83880; 84100-TC; 84484-TC; 85025-TC; 87040-TC; 87081-TC; 87086-TC; 87400; 92611-TC; 93307-TC; 94799-TC; 97110-TC; 97530-TC; A4216; A4606; J1650; J1956; J2543; J2930; J3370; J3475; J7030; J7050; J7060; Q0175; Z7610